=== PATIENT | male | born 1975 | race Caucasian/White ===

== ENCOUNTER 2016-09-08 10:05 | Emergency (ER) | payer BC, OTHER ==
[~2016-09-08] VITALS: Ht 190.5 cm; Wt 140.6 kg
[~2016-09-08 10:05] MED LIST: LSN/10125 PO; PRX/40 PO
[2016-09-08 10:12] VITALS: BP 171/92; PULSE 90; TEMP 36.9; O2SAT 97; Ht 190.5 cm; Wt 140.6 kg
[2016-09-08] MEDS ORDERED: CLIN300C2 PO (10:46)
[2016-09-08] MEDS ORDERED: LISI-461 PO (10:51)
[2016-09-08] MEDS ORDERED: GLC/500 PO (10:51)
[2016-09-08] MEDS ORDERED: CLINDAMYCIN HCL 150 MG CAP PO ONE (11:00)
--- NOTE | 2016-09-08 17:41 | EMERGENCY ROOM VISIT NOTE ---
History First contact with patient: 10:31 Chief Complaint: DENTAL PAIN Stated Complaint: TOOTH PAIN Nursing Triage Summary: Left lower dental pain. "I have a broken tooth, I was on a course of antibiotics, I'm to have it out in Sep." per the pt. History of Present Illness The patient is a 41 year old male who presents to the Emergency Room with complaints of left lower dental pain. The patient reports that he has had this discomfort for the past 2 weeks. He saw his family doctor 11 days ago and got a prescription for amoxicillin. He reports that he had no improvement. He has also been seen by Dr. Fontenot, dentist who referred him to Dr. Melton for a total lower dental extraction. The patient reports that this will happen in early September. He is here requesting a stronger prescription antibiotic. He rates his discomfort a 7 out of 10, but refuses any current or prescription analgesics. He has not noticed any facial swelling or difficulty swallowing. Review of Systems 10 system review was performed and was negative except for pertinent positives and negatives as indicated in history of present illness Past Medical/Surgical History Medical Problems: (1) Heart disease (2) HTN (hypertension) Family History Diabetes mellitus Hypertension Social History Smoking Status: Current Every Day Smoker Alcohol Use: occasionally Marital Status: single Housing Status: lives alone, unknown Occupation Status: employed Current/Historical Medications Scheduled Clindamycin Hcl (Cleocin), 300 MG PO TID Lisinopril (Zestril), 10 MG PO DAILY Metformin Hcl (Glucophage), 500 MG PO BID Paroxetine (Paroxetine HCl), 40 MG PO DAILY Allergies Coded Allergies: No Known Allergies (Unverified , 09/08/16) Physical Exam Vital Signs Date Time Temp Pulse Resp B/P Pulse Ox O2 Delivery O2 Flow Rate FiO2 09/08/16 10:12 36.9 90 18 171/92 97 Room Air Physical Exam CONSTITUTIONAL: Healthy and well nourished. Alert and oriented X 3 with positive affect. HEENT: Normocephalic, atraumatic. Pupils equal, round and reactive. No obvious facial edema. OROPHARYNX: The patient has minimal left gingival erythema without evidence for fluctuance or pointing. No evidence for Darin's angina or retropharyngeal abscess. Negative trismus. LYMPHATICS: No submandibular, submental or cervical chain adenopathy. NECK: Full active range of motion without discomfort. RESPIRATORY: Clear to auscultation bilaterally with no wheezing, crackles, rhonchi or stridor. CARDIOVASCULAR: Regular rate and rhythm with no murmurs, rubs or gallops. MUSCULOSKELETAL: Full range of motion of all joints without discomfort. INTEGUMENTARY: No rash or other significant dermatologic conditions noted. NEUROLOGIC: Facial sensations are intact. Medical Decision & Procedures Medications Administered Medications (Trade) Dose Ordered Sig/[place] Route Start Time Stop Time Status Last Admin Dose Admin Clindamycin HCl (Cleocin Cap) 300 mg NOW ONCE PO 09/08/16 11:00 09/08/16 11:01 DC 09/08/16 10:52 300 MG ED Course Patient history and physical exam were performed. Nurse's notes were reviewed. The patient will be provided a prescription for Cleocin. He was encouraged to alternate ibuprofen and Tylenol for pain. He may continue follow-up with his PCP until his dental extraction in early September. Return to the emergency department for any developing fever, difficulty swallowing or other significant symptoms. The patient was administered Cleocin prior to discharge as he will not be able to get to the pharmacy until later this evening. He rated his pain a 3 out of 10 at the conclusion of my exam. Medical Decision Impression Primary Impression: Periapical abscess Departure Information Dispostion Home / Self-Care Condition FAIR Prescriptions Clindamycin Hcl (CLEOCIN) 300 Mg Cap 300 MG PO TID for 10 Days, #30 CAP Prov: Osmin Shook PA 09/08/16 Referrals No Doctor, Assigned Forms HOME CARE DOCUMENTATION FORM, IMPORTANT VISIT INFORMATION Patient Instructions My [facility] Additional Instructions Complete all clindamycin antibiotics as prescribed. Ibuprofen or Tylenol as needed for pain. Continue follow-up with your oral surgeon for further management. Return to the emergency department for significant facial swelling, difficulty swallowing or developing fever.
== END 2016-09-08 10:56 | disposition home or self-care (01) ==
LOC: C.EDB 10:07 → C.EDC 10:56
DX: K04.7 Periapical abscess without sinus (principal); I10 Essential (primary) hypertension; I51.9 Heart disease, unspecified; F17.200 Nicotine dependence, unspecified, uncomplicated

== ENCOUNTER → 2017-05-20 | Outpatient (CLI) | payer OTHER, BC ==
[~2017-05-20] MED LIST changes: +GLC/500 PO; +LISI-461 PO; -LSN/10125 PO
--- NOTE | 2017-05-20 11:00 | DIAGNOSTIC IMAGING REPORT ---
R ELBOW MIN 3 VIEWS ROUTINE CLINICAL HISTORY: BICEP PAIN RIGHT pain COMPARISON: None. DISCUSSION: The bones and joint spaces appear intact. There is no evidence of fracture, dislocation or bony disease. There is no evidence for soft tissue swelling. IMPRESSION: Negative study. The above report was generated using voice recognition software. It may contain grammatical, syntax or spelling errors. Electronically signed by: Herve Barger M.D. 05/20/2017 10:59 AM Dictated Date/Time: 05/20/2017 10:58 AM
== END | disposition home or self-care (01) ==
LOC: C.RAD1850 10:46
PROVIDERS: ATTEND Nurse Practitioner Adult Health
DX: M25.521 Pain in right elbow (principal)